=== PATIENT | female | born 1990 | race Caucasian/White ===

== ENCOUNTER 2017-06-25 10:02 | Emergency (ER) | payer SELFPAY, BC ==
[2017-06-25 11:02] LABS: INFLUENZA A PATIENT POSITIVE (NEGATIVE); INFLUENZA B PATIENT NEGATIVE (NEGATIVE); OBC FLU VALID
[2017-06-25] MEDS ORDERED: ONDANSETRON ODT 4 MG TAB.RAPDIS. (11:13)
[2017-06-25] MEDS ORDERED: IBUPROFEN 800 MG TABLET. PO (11:13)
[2017-06-25] MEDS: IBUPROFEN 800 MG TABLET. PO (11:16)
[2017-06-25] MEDS: ONDANSETRON ODT 4 MG TAB.RAPDIS. PO (11:16)
== END 2017-06-25 11:21 | disposition home or self-care (01) ==
LOC: ER 10:02
DX: J10.1 Influenza due to other identified influenza virus with other respiratory manifestations (principal); R11.2 Nausea with vomiting, unspecified
CPT/HCPCS: 87804; 87804-59; 99284; Q0162